=== PATIENT | male | born 1980 | race African-American/Black ===

== ENCOUNTER 2017-09-05 15:04 | Emergency (ER) | payer MEDICAID, OTHER ==
[~2017-09-05] VITALS: Ht 172.7 cm; Wt 59.0 kg
[~2017-09-05 15:04] MED LIST: ABILIFY2 MG ORAL; ABILIFY30 MG ORAL; ESCITALOPRAM OX10 MG ORAL; GABAPENTIN250 MG/5 M PO; GABAPENTIN600 MG ORAL; IBUPROFEN600 MG ORAL; LEXAPRO10 MG ORAL; NORCO 5-325 TA1 EACH ORAL; PROZAC20 MG ORAL; Q-PAP325 M1 PO; SERTRALINE HCL25 MG ORAL; SERTRALINE HCL50 MG ORAL; TRAZODONE HCL100 MG ORAL
[2017-09-05 15:25] VITALS: BP 112/56
--- NOTE | 2017-09-05 15:37 | Emergency Room Report ---
History of Present Illness General Chief Complaint: Behavioral Complaint Source: Patient Present Illness HPI 37-year-old male history of bipolar disorder on Wellbutrin and Prozac, substance abuse, presenting with suicidal ideation. Patient was in a rehabilitation facility for 3 days, for cocaine use, was kicked out of the facility because he was "flirting with staff" Patient now stating that he wants to "give up on life", he has no reason to live , states that he would like to slit his neck or shoot himself with a gun, anything that is painless States that he has had 2 suicide attempts in the past, once by swallowing pills States that the last psych hospitalization he has had was a few weeks ago in [place] he was there for 3 days No auditory hallucinations, patient states that he has been compliant with his medications Allergies: Coded Allergies: No Known Allergies (Unverified , 03/17/16) Patient History Past Medical History: see triage record Past Surgical History: none Pertinent Family History: none Reviewed Nursing Documentation: PMH: Agreed, PSxH: Agreed Nursing Documentation-PMH History Of Psychiatric Problem: Yes - depression Hx Neurological Problems: Yes - Nerve pains Hx Seizures: Yes Review of Systems All Other Systems: negative except mentioned in HPI Physical Exam Vital Signs Date Time Temp Pulse Resp B/P (MAP) Pulse Ox O2 Delivery O2 Flow Rate FiO2 09/05/17 14:57 98.4 86 16 128/72 98 Sp02 EP Interpretation: reviewed, normal General Appearance: alert, GCS 15, non-toxic, other - depressed affect Head: normocephalic, atraumatic Eyes: bilateral eye normal inspection, bilateral eye PERRL, bilateral eye EOMI ENT: normal ENT inspection, normal pharynx, normal voice, moist mucus membranes Neck: normal inspection, full range of motion, supple Respiratory: normal inspection, lungs clear, normal breath sounds, no respiratory distress, no retraction, no wheezing, speaking full sentences, chest symmetrical Cardiovascular #1: normal inspection, regular rate, rhythm, no edema, normal capillary refill Cardiovascular #2: 2+ radial (R), 2+ radial (L) Gastrointestinal: normal inspection, non tender, soft, non-distended, no guarding Genitourinary: no CVA tenderness Musculoskeletal: normal inspection, back normal, normal range of motion, non- tender Neurologic: normal inspection, alert, oriented x3, responsive, motor strength/ tone normal, sensory intact, normal gait, speech normal Psychiatric: depressed affect, other - +SI Skin: normal inspection, normal color, no rash, warm/dry, well hydrated, normal turgor Medical Decision Making Diagnostic Impression: Primary Impression: Suicidal ideations Additional Impression: Substance abuse ER Course 37-year-old male presenting with suicidal ideation DDX: Bipolar disorder, depression, suicidal thoughts and plan Plan: Obtain labs, ua, toxicology, PET team ER course: Patient has been monitored during ED stay, HD stable He is medically clear for transfer to psych facility Stating "when I get out of here I will kill myself" Given haldol/ativan Pending psych placement Signed out patient to Dr Loredo 37 yo m with bipolar depression, +SI with plan -not on a hold -pending PET team eval and admission due to +si Please note that this Emergency Department Report was dictated using [employer]!shredder operator technology software, occasionally this can lead to erroneous entry secondary to interpretation by the dictation equipment. Laboratory Tests Test 09/05/17 15:40 White Blood Count 7.7 K/UL (4.8-10.8) Red Blood Count 4.82 M/UL (4.70-6.10) Hemoglobin 13.1 G/DL (14.2-18.0) L Hematocrit 41.3 % (42.0-52.0) L Mean Corpuscular Volume 86 FL (80-99) Mean Corpuscular Hemoglobin 27.1 PG (27.0-31.0) Mean Corpuscular Hemoglobin Concent 31.7 G/DL (32.0-36.0) L Red Cell Distribution Width 11.8 % (11.6-14.8) Platelet Count 360 K/UL (150-450) Mean Platelet Volume 6.0 FL (6.5-10.1) L Neutrophils (%) (Auto) 71.9 % (45.0-75.0) Lymphocytes (%) (Auto) 22.7 % (20.0-45.0) Monocytes (%) (Auto) 3.9 % (1.0-10.0) Eosinophils (%) (Auto) 0.2 % (0.0-3.0) Basophils (%) (Auto) 1.3 % (0.0-2.0) Urine Color Yellow Urine Appearance Clear Urine pH 5 (4.5-8.0) Urine Specific [place] 1.025 (1.005-1.035) Urine Protein 2+ (NEGATIVE) H Urine Glucose (UA) Negative (NEGATIVE) Urine Ketones 3+ (NEGATIVE) H Urine Occult Blood Negative (NEGATIVE) Urine Nitrite Negative (NEGATIVE) Urine Bilirubin Negative (NEGATIVE) Urine Urobilinogen 1 MG/DL (0.0-1.0) H Urine Leukocyte Esterase 1+ (NEGATIVE) H Urine RBC 0-2 /HPF (0 - 0) H Urine WBC 2-4 /HPF (0 - 0) Urine Squamous Epithelial Cells None /LPF (NONE/OCC) Urine Bacteria Few /HPF (NONE) Sodium Level 139 MMOL/L (136-145) Potassium Level 4.2 MMOL/L (3.5-5.1) Chloride Level 101 MMOL/L (98-107) Carbon Dioxide Level 30 MMOL/L (21-32) Anion Gap 8 mmol/L (5-15) Blood Urea Nitrogen 12 mg/dL (7-18) Creatinine 1.1 MG/DL (0.55-1.30) Estimate Glomerular Filtration Rate > 60 mL/min (>60) Glucose Level 84 MG/DL (74-106) Calcium Level 9.4 MG/DL (8.5-10.1) Total Bilirubin 0.4 MG/DL (0.2-1.0) Aspartate Amino Transferase (AST) 18 U/L (15-37) Alanine Aminotransferase (ALT) 31 U/L (12-78) Alkaline Phosphatase 74 U/L (46-116) Total Protein 8.4 G/DL (6.4-8.2) H Albumin 4.1 G/DL (3.4-5.0) Globulin 4.3 g/dL Albumin/Globulin Ratio 1.0 (1.0-2.7) Salicylates Level 1.4 ug/mL (2.8-20) L Urine Opiates Screen Negative (NEGATIVE) Acetaminophen Level < 2 MCG/ML (10-30) L Urine Barbiturates Screen Negative (NEGATIVE) Phencyclidine (PCP) Screen Negative (NEGATIVE) Urine Amphetamines Screen Negative (NEGATIVE) Urine Benzodiazepines Screen Negative (NEGATIVE) Urine Cocaine Screen Positive (NEGATIVE) H Urine Marijuana (THC) Screen Negative (NEGATIVE) Serum Alcohol < 3 mg/dL Last Vital Signs Date Time Temp Pulse Resp B/P (MAP) Pulse Ox O2 Delivery O2 Flow Rate FiO2 09/05/17 14:57 98.4 86 16 128/72 98 Disposition: XFER SHT-TRM HOSP Condition: Serious Referrals: AMBIKA MARTÍNEZ,REFERRING (PCP) Claudia Ortega M.D. Sep 05, 2017 15:36
[2017-09-05 16:22] LABS: APPEARANCE,URINE CLEAR; KETONES,URINE 3+ (NEGATIVE); LEUKOCYTE ESTERASE ,URINE 1+ (NEGATIVE); NITRITE,URINE NEGATIVE (NEGATIVE); PH,URINE 5 (4.5-8.0); PROTEIN,URINE 2+ (NEGATIVE); UROBILINOGEN,URINE 1 MG/DL (0.0-1.0)
[2017-09-05 16:26] LABS: BASOPHILS % (AUTO) 1.3 % (0.0-2.0); EOSINOPHILS % (AUTO) 0.2 % (0.0-3.0); LYMPHOCYTES % (AUTO) 22.7 % (20.0-45.0); MEAN CORPUSCULAR HEMOGLOBIN 27.1 PG (27.0-31.0); MEAN CORPUSCULAR HGB CONC 31.7 G/DL (32.0-36.0); MEAN CORPUSCULAR VOLUME 86 FL (80-99); MONOCYTES % (AUTO) 3.9 % (1.0-10.0); NEUTROPHILS % (AUTO) 71.9 % (45.0-75.0); PLATELET COUNT 360 K/UL (150-450); RED BLOOD COUNT 4.82 M/UL (4.70-6.10); RED CELL DISTRIBUTION WIDTH 11.8 % (11.6-14.8); WHITE BLOOD COUNT 7.7 K/UL (4.8-10.8)
[2017-09-05 16:28] LABS: ANION GAP 8 mmol/L (5-15); CALCIUM 9.4 MG/DL (8.5-10.1); CARBON DIOXIDE 30 MMOL/L (21-32); CHLORIDE 101 MMOL/L (98-107); CREATININE 1.1 MG/DL (0.55-1.30); GLOMERULAR FILTRATION RATE > 60 mL/min (>60); POTASSIUM 4.2 MMOL/L (3.5-5.1); SODIUM 139 MMOL/L (136-145)
[2017-09-05 16:35] LABS: BACTERIA,URINE FEW /HPF; RBC,URINE 0-2 /HPF (0 - 0)
[2017-09-05 16:37] LABS: ACETAMINOPHEN < 2 MCG/ML (10-30); ALANINE AMINOTRANSFERASE 31 U/L (12-78); ALCOHOL < 3 mg/dL; ASPARTATE AMINO TRANSFERASE 18 U/L (15-37); TOTAL PROTEIN 8.4 G/DL (6.4-8.2)
[2017-09-05 17:02] VITALS: BP 117/57
[2017-09-05] MEDS ORDERED: LORazepam Inj 2mg/ml 1ml IV ONE (17:45)
[2017-09-05] MEDS ORDERED: LORazepam Inj 2mg/ml 1ml IM ONE (18:00)
[2017-09-05] MEDS ORDERED: Haloperidol 5mg/ml Inj IM ONE (18:00)
[2017-09-05] MEDS ORDERED: Morphine Sulfate 4mg/ml Inj IVP ONE (18:30)
[2017-09-05 19:03] VITALS: BP 119/69
[2017-09-05 21:30] VITALS: BP 95/55
[2017-09-05 23:30] VITALS: BP 101/53
[2017-09-06] VITALS (8 sets, daily range): BP systolic 89–118; BP diastolic 47–64
--- NOTE | 2017-09-06 10:43 | Consultation ---
History of Present Illness General Date patient seen: Sep 06, 2017 Chief Complaint: Behavioral Complaint Present Illness HPI the pt has hx of substance use d/o was at a rehab and was inapproprate at rehab he was kicked out therefore he relapsed and now he says he is suicidal/ the pts presentation is not consistent with his sxs and affect. the pt is not at imminent dts/dto Allergies: Coded Allergies: No Known Allergies (Unverified , 03/17/16) Medication History Scheduled Acetaminophen (Q-Pap), 650 MG PO TID, (Reported) Aripiprazole* (Abilify*), 2 MG ORAL DAILY, (Reported) Aripiprazole* (Abilify*), 30 MG ORAL DAILY, (Reported) Divalproex Sodium* (Depakote Er*), 1,000 MG ORAL QHS Escitalopram Oxalate (Escitalopram Oxalate*), 10 MG ORAL DAILY, (Reported) Escitalopram Oxalate* (Lexapro*), 10 MG ORAL DAILY, (Reported) Fluoxetine Hcl* (Prozac*), 20 MG ORAL DAILY, (Reported) Gabapentin* (Gabapentin*), 600 MG ORAL TWICE A DAY, (Reported) Gabapentin* (Gabapentin*), 600 MG ORAL THREE TIMES A DAY, (Reported) Sertraline Hcl* (Zoloft*), 50 MG ORAL DAILY, (Reported) Sertraline Hcl* (Sertraline Hcl*), 100 MG ORAL DAILY, (Reported) Trazodone Hcl* (Desyrel*), 100 MG ORAL BEDTIME, (Reported) Scheduled PRN Hydrocodone Bit/Acetaminophen 5-325* ([place] 5-325*), 1 TAB ORAL Q6H PRN for For Pain Ibuprofen* (Motrin*), 600 MG ORAL Q8H PRN for For Pain Miscellaneous Medications Gabapentin (Gabapentin), 250 MG PO, (Reported) Patient History History Provided By: Patient, Medical Record, PMD Healthcare decision maker Resuscitation status Advanced Directive on File Past Medical/Surgical History Past Medical/Surgical History: (1) Ankle sprain (2) Behavioral change (3) Substance abuse (4) Suicidal ideations Review of Systems Psychiatric: Reports: anxiety, depressed feelings, emotional problems Physical Exam General Appearance: no apparent distress, alert Neurologic: alert, oriented x 3, responsive, depressed affect Last 24 Hour Vital Signs Date Time Temp Pulse Resp B/P (MAP) Pulse Ox O2 Delivery O2 Flow Rate FiO2 09/06/17 08:50 85 14 106/60 99 Room Air 09/06/17 08:01 93 16 101/47 100 Room Air 09/06/17 07:00 85 16 98/59 100 Room Air 09/06/17 05:00 76 16 95/51 99 Room Air 09/06/17 03:00 78 16 89/58 99 Room Air 09/06/17 01:00 78 13 94/57 100 Room Air 09/05/17 23:30 73 11 101/53 100 Room Air 09/05/17 21:30 79 15 95/55 100 Nasal Cannula 5.0 09/05/17 19:03 95 20 119/69 96 Room Air 09/05/17 17:02 99 15 117/57 96 Room Air 09/05/17 15:25 98 14 112/56 96 Room Air 09/05/17 14:57 98.4 86 16 128/72 98 Laboratory Tests Test 09/05/17 15:40 White Blood Count 7.7 K/UL (4.8-10.8) Red Blood Count 4.82 M/UL (4.70-6.10) Hemoglobin 13.1 G/DL (14.2-18.0) L Hematocrit 41.3 % (42.0-52.0) L Mean Corpuscular Volume 86 FL (80-99) Mean Corpuscular Hemoglobin 27.1 PG (27.0-31.0) Mean Corpuscular Hemoglobin Concent 31.7 G/DL (32.0-36.0) L Red Cell Distribution Width 11.8 % (11.6-14.8) Platelet Count 360 K/UL (150-450) Mean Platelet Volume 6.0 FL (6.5-10.1) L Neutrophils (%) (Auto) 71.9 % (45.0-75.0) Lymphocytes (%) (Auto) 22.7 % (20.0-45.0) Monocytes (%) (Auto) 3.9 % (1.0-10.0) Eosinophils (%) (Auto) 0.2 % (0.0-3.0) Basophils (%) (Auto) 1.3 % (0.0-2.0) Urine Color Yellow Urine Appearance Clear Urine pH 5 (4.5-8.0) Urine Specific [place] 1.025 (1.005-1.035) Urine Protein 2+ (NEGATIVE) H Urine Glucose (UA) Negative (NEGATIVE) Urine Ketones 3+ (NEGATIVE) H Urine Occult Blood Negative (NEGATIVE) Urine Nitrite Negative (NEGATIVE) Urine Bilirubin Negative (NEGATIVE) Urine Urobilinogen 1 MG/DL (0.0-1.0) H Urine Leukocyte Esterase 1+ (NEGATIVE) H Urine RBC 0-2 /HPF (0 - 0) H Urine WBC 2-4 /HPF (0 - 0) Urine Squamous Epithelial Cells None /LPF (NONE/OCC) Urine Bacteria Few /HPF (NONE) Sodium Level 139 MMOL/L (136-145) Potassium Level 4.2 MMOL/L (3.5-5.1) Chloride Level 101 MMOL/L (98-107) Carbon Dioxide Level 30 MMOL/L (21-32) Anion Gap 8 mmol/L (5-15) Blood Urea Nitrogen 12 mg/dL (7-18) Creatinine 1.1 MG/DL (0.55-1.30) Estimat Glomerular Filtration Rate > 60 mL/min (>60) Glucose Level 84 MG/DL (74-106) Calcium Level 9.4 MG/DL (8.5-10.1) Total Bilirubin 0.4 MG/DL (0.2-1.0) Aspartate Amino Transf (AST/SGOT) 18 U/L (15-37) Alanine Aminotransferase (ALT/SGPT) 31 U/L (12-78) Alkaline Phosphatase 74 U/L (46-116) Total Protein 8.4 G/DL (6.4-8.2) H Albumin 4.1 G/DL (3.4-5.0) Globulin 4.3 g/dL Albumin/Globulin Ratio 1.0 (1.0-2.7) Salicylates Level 1.4 ug/mL (2.8-20) L Urine Opiates Screen Negative (NEGATIVE) Acetaminophen Level < 2 MCG/ML (10-30) L Urine Barbiturates Screen Negative (NEGATIVE) Phencyclidine (PCP) Screen Negative (NEGATIVE) Urine Amphetamines Screen Negative (NEGATIVE) Urine Benzodiazepines Screen Negative (NEGATIVE) Urine Cocaine Screen Positive (NEGATIVE) H Urine Marijuana (THC) Screen Negative (NEGATIVE) Serum Alcohol < 3 mg/dL Height (Feet): 5 Height (Inches): 8.00 Weight (Pounds): 130 Assessment/Plan Status: stable Assessment/Plan dc with follow up plan with psych not a [id number] Beth Nash M.D. Sep 06, 2017 10:43
[2017-09-06] MEDS ORDERED: Depakote ER 500mg tab ORAL ONE (11:00)
[2017-09-06] MEDS ORDERED: DEPAKOTE ER500 MG ORAL (11:24)
== END 2017-09-06 11:40 | disposition home or self-care (01) ==
LOC: EDBD 15:04 → EMR 15:10
DX: R45.851 Suicidal ideations (principal); F31.9 Bipolar disorder, unspecified; F14.10 Cocaine abuse, uncomplicated; Z79.899 Other long term (current) drug therapy
CPT/HCPCS: 36415; 80053; 80307; 80329; 81003; 85025; 96372; 96374; 96375; 99284; J1630; J2270